=== PATIENT | female | born 1990 | race African-American/Black ===

== ENCOUNTER 2016-07-27 21:37 | Emergency (ER) | payer OTHER ==
[~2016-07-27] VITALS: Ht 162.6 cm; Wt 89.8 kg
[~2016-07-27 21:37] MED LIST: DEPO-PROVE150 MG/1 M IM; MEDROXYPROGESTERONE; NOHOMEMEDICATIONS; NORCO 5-325 TA1 EACH PO; PENICILLIN V P500 MG PO; PEPCID40 MG PO; PHENERGAN 25 MG25 M1 PO
[2016-07-27 21:42] VITALS: BP 119/76
[2016-07-27] MEDS ORDERED: HYDROCODONE-AP1 EAC6 PO (21:59)
[2016-07-27] MEDS ORDERED: NAPROSYN500 MG PO (21:59)
== END 2016-07-27 22:10 | disposition home or self-care (01) ==
LOC: ER 21:37
DX: K02.9 Dental caries, unspecified (principal); I95.89 Other hypotension

== ENCOUNTER 2019-09-22 12:39 | Emergency (ER) | payer OTHER ==
[~2019-09-22] VITALS: Ht 162.6 cm; Wt 92.5 kg
[~2019-09-22 12:39] MED LIST changes: +HYDROCODONE-AP1 EAC6 PO; +NAPROSYN500 MG PO
[2019-09-22] MEDS ORDERED: IBU600 MG PO (14:48)
[2019-09-22] MEDS ORDERED: FLEXERIL PO (14:48)
[2019-09-22 15:10] VITALS: BP 106/66
== END 2019-09-22 15:10 | disposition home or self-care (01) ==
LOC: ER 12:39
DX: S46.911A Strain of unspecified muscle, fascia and tendon at shoulder and upper arm level, right arm, initial encounter (principal); S16.1XXA Strain of muscle, fascia and tendon at neck level, initial encounter; S83.92XA Sprain of unspecified site of left knee, initial encounter; S70.02XA Contusion of left hip, initial encounter; S63.501A Unspecified sprain of right wrist, initial encounter; V43.52XA Car driver injured in collision with other type car in traffic accident, initial encounter; Y93.I9 Activity, other involving external motion; Y92.488 Other paved roadways as the place of occurrence of the external cause; Y99.8 Other external cause status